=== PATIENT | female | born 1985 | race Caucasian/White ===

== ENCOUNTER 2017-08-24 14:15 | Inpatient (IN) | payer OTHER ==
[2017-08-24] VITALS (13 sets, daily range): BP systolic 109–128; BP diastolic 71–82
[~2017-08-24] VITALS: Ht 160 cm; Wt 55.4 kg
[2017-08-24 14:52] LABS: URINE BILIRUBIN - DIPSTICK NEGATIVE (NEGATIVE); URINE BLOOD DIPSTICK NEGATIVE (NEGATIVE); URINE COLOR YELLOW; URINE GLUCOSE - DIPSTICK NEGATIVE (NEGATIVE); URINE KETONE NEGATIVE (NEGATIVE); URINE LEUK ESTERASE NEGATIVE (NEGATIVE); URINE NITRITE - DIPSTICK NEGATIVE (Negative); URINE PROTEIN - DIPSTICK NEGATIVE (NEG-TRACE); URINE UROBILINOGEN - DIPSTICK 0.2 E.U./dL (0.2)
[2017-08-24 14:53] LABS: HEMATOCRIT 37.3 % (37.0-47.0); HEMOGLOBIN 13.3 g/dl (12.0-16.0); IMMATURE GRANULOCYTES 0.4 % (0.0-1.0); MEAN CORPUSCULAR HGB 33.2 pG CALC (26.0-32.0); MEAN CORPUSCULAR HGB CONC 35.7 g/L CALC (32.0-36.0); NEUT# 7.29 thou/uL (2.00-7.15); RED BLOOD COUNT 4.01 mill/uL (4.20-5.60)
[2017-08-24 14:53] LABS: URINE CLARITY CLEAR
[2017-08-24 14:55] LABS: BARBITURATES NEGATIVE (NEGATIVE); COCAINE NEGATIVE (NEGATIVE); METHADONE NEGATIVE (NEGATIVE); OXCYCODONE NEGATIVE (NEGATIVE); TETRAHYDROCANNABIONOL NEGATIVE (NEGATIVE); TRICYLIC ANTIDEPRESSANTS NEGATIVE (NEGATIVE)
[2017-08-24 15:05] LABS: ALBUMIN 4.2 g/dL (3.2-5.0); ALKALINE PHOSPHATASE 103 u/l (38-126); ANION GAP 15 (6-22 (CALC)); BILIRUBIN, TOTAL 0.4 mg/dL (0.0-1.4); BUN 10 mg/dL (7-17); BUN/CREATININE RATIO 16 (12-20 (CALC)); CALCIUM 9.2 mg/dL (8.4-10.2); CARBON DIOXIDE 21 mmol/l (22-30); CHLORIDE 107 mmol/l (95-108); CREATININE 0.7 mg/dL (0.5-1.0); GFR > 60 ML/MIN (>=60 (CALC)); GFR FOR AFR.AMER. > 60 ML/MIN (>=60 (CALC)); GLUCOSE 71 mg/dL (65-105); POTASSIUM 4.1 mmol/l (3.5-5.1); SGOT/AST 23 u/l (14-36); SGPT/ALT 27 u/l (9-52); SODIUM 139 mmol/l (137-146); TOTAL PROTEIN 7.4 g/dL (6.3-8.2)
[2017-08-24] MEDS ORDERED: PRE-NATAL PO (15:29)
== END 2017-08-24 17:00 | disposition short-term general hospital (02) | DRG 782 ==
LOC: OB 14:15 → ED 14:17 → OBOP 14:17 → EDSTATUS 14:23 → OB 17:00
DX: O42.913 Preterm premature rupture of membranes, unspecified as to length of time between rupture and onset of labor, third trimester (principal); Z3A.31 31 weeks gestation of pregnancy
CPT/HCPCS: J2540